=== PATIENT | male | born 1995 | race Hispanic/Latino ===

== ENCOUNTER 2017-04-01 05:32 | Emergency (ER) | payer BC, MEDICAID ==
[2017-04-01 06:06] VITALS: BP 147/59; PULSE 107; RESP 17; TEMP 98.2; O2SAT 97
--- NOTE | 2017-04-01 07:12 | ED PDOC ---
HPI: Psych/Substance Abuse Time Seen by Provider: 04/01/17 05:41 Chief Complaint (Nursing): Psychiatric Evaluation Chief Complaint (Provider): Psych eval History Per: Patient History/Exam Limitations: no limitations Suicide/Self Injury Attempted (Context): None Involuntary Hold By: Local Law Enforcement Additional Complaint(s): The pt is a 21yo male, brought to the ED by the police for crisis evaluation. Pt was in retirement for an unknown reason because of "summons" and reports that while in custody he "pretended as though he was going to hang himself." Pt currently denies any suicidal thoughts or plans and states his actions were done in purpose to get out of retirement. Pt currently denies any medical complaints. Past Medical History Reviewed: Historical Data, Nursing Documentation, Vital Signs Vital Signs: Last Vital Signs Temp 98.2 F 04/01/17 05:54 Pulse 107 H 04/01/17 05:54 Resp 17 04/01/17 05:54 BP 147/59 L 04/01/17 05:54 Pulse Ox 97 04/01/17 05:54 - Medical History PMH: Migraine - Surgical History Surgical History: No Surg Hx - Family History Family History: States: Unknown Family Hx - Allergies Allergies/Adverse Reactions: Allergies Allergy/AdvReac Type Severity Reaction Status Date / Time cefprozil [From Cefzil] Allergy Intermediate hives Verified 04/01/17 05:48 Review of Systems ROS Statement: Except As Marked, All Systems Reviewed And Found Negative Constitutional: Positive for: Other (pt offers no medical complaints) Psych: Negative for: Suicidal ideation Physical Exam - Reviewed Nursing Documentation Reviewed: Yes Vital Signs Reviewed: Yes - Physical Exam Appears: Positive for: Well, Non-toxic, No Acute Distress Head Exam: Positive for: ATRAUMATIC, NORMAL INSPECTION, NORMOCEPHALIC Skin: Positive for: Normal Color Eye Exam: Positive for: Normal appearance Neck: Positive for: Normal Cardiovascular/Chest: Positive for: Regular Rate, Rhythm Respiratory: Positive for: Normal Breath Sounds. Negative for: Respiratory Distress Neurologic/Psych: Positive for: Alert, Oriented, Other (pt denies any suicidal plan or ideation) - ECG O2 Sat by Pulse Oximetry: 97 (RA) Pulse Ox Interpretation: Normal Medical Decision Making Medical Decision Making: Time: 0600 Impression: Crisis evaluation Plan: -- Pt awaiting crisis evaluation --Reassess Time: 0700 Pt evaluated by crisis, stable for discharge home. Final diagnosis: Mood disorders Scribe Attestation: Documented by Zoila Govea acting as a scribe for Kerline Londono MD. Provider Attestation: All medical record entries made by the Scribe were at my direction and personally dictated by me. I have reviewed the chart and agree that the record accurately reflects my personal performance of the history, physical exam, medical decision making, and the department course for this patient. I have also personally directed, reviewed, and agree with the discharge instructions and disposition. Disposition - Clinical Impression Clinical Impression: Adjustment disorder - Patient ED Disposition Is Patient to be Admitted: No Doctor Will See Patient In The: Office Counseled Patient/Family Regarding: Studies Performed, Diagnosis, Need For Followup - Disposition Referrals: [facility] [Outside] Disposition: Routine/Home Disposition Time: 07:00 Condition: GOOD Additional Instructions: Follow up with your PCP in 2-3 days. Instructions: Mood Disorders (ED)
== END 2017-04-01 07:07 | disposition home or self-care (01) ==
LOC: H.ER 05:32
DX: F43.20 Adjustment disorder, unspecified (principal)